=== PATIENT | female | born 1975 | race Hispanic/Latino ===

== ENCOUNTER 2019-07-27 | Emergency (ER) | payer SELFPAY ==
[~2019-07-27] MED LIST: AMOXIL500 MG OR; CALNA PO; IBUPROFEN600 MG PO; LORTAB 7.5-3251 TAB PO; NO; TORADOL OR
== END 2019-07-27 23:40 | disposition home or self-care (01) | DRG 300 ==
DX: I83.213 Varicose veins of right lower extremity with both ulcer of ankle and inflammation (principal); L97.319 Non-pressure chronic ulcer of right ankle with unspecified severity

== ENCOUNTER 2022-09-24 21:30 | Emergency (ER) | payer SELFPAY ==
[~2022-09-24] VITALS: Ht 154.9 cm; Wt 68.0 kg
[2022-09-24] VITALS (8 sets, daily range): BP systolic 105–126; BP diastolic 37–60
[2022-09-24 22:35] LABS: BASO% 0.2 % (0-3); EOS% 2.6 % (0-8); HEMATOCRIT 29.6 % (37.0-47.0); IMMATURE GRANULOCYTES 0.2 % (0.0-5.0); LYMPH% 22.9 % (15-41); MEAN CELL VOLUME 94.9 fL CALC (80.0-100.0); MEAN CORPUSCULAR HGB 28.8 pG CALC (26.0-32.0); MEAN CORPUSCULAR HGB CONC 30.4 g/dL CAL (32.0-36.0); MONO% 8.1 % (2-13); NEUT# 3.08 thou/uL (2.00-7.15); RED BLOOD COUNT 3.12 mill/uL (4.20-5.60); RED CELL DISTRI WIDTH 17.1 % (11.5-15.5)
[2022-09-24 22:41] LABS: URINE BILIRUBIN - DIPSTICK NEGATIVE (NEGATIVE); URINE BLOOD DIPSTICK LARGE (NEGATIVE); URINE GLUCOSE - DIPSTICK 250 mg/dL (NEGATIVE); URINE KETONE 15 mg/dL (NEGATIVE); URINE PROTEIN - DIPSTICK >=300 mg/dL (NEG-TRACE); URINE SPECIFIC GRAVITY <=1.005
[2022-09-24 22:42] LABS: URINE COLOR RED; URINE LEUK ESTERASE MODERATE (NEGATIVE); URINE NITRITE - DIPSTICK POSITIVE (Negative)
[2022-09-24 22:45] LABS: URINE RBC >100 RBC/hpf (0-5); URINE SQUAMOUS EPITHELIAL CELL RARE EPI/hpf (0-FEW)
[2022-09-24 22:47] LABS: ALKALINE PHOSPHATASE 180 u/l (38-126); ANION GAP 13 (6-22 (CALC)); BILIRUBIN, TOTAL 1.5 mg/dL (0.02-1.3); BUN 5 mg/dL (7-17); BUN/CREATININE RATIO 10 (12-20 (CALC)); CARBON DIOXIDE 23 mmol/l (22-30); CHLORIDE 109 mmol/l (95-108); CREATININE 0.5 mg/dL (0.5-1.0); GFR FOR AFR.AMER. > 60 ML/MIN (>=60 (CALC)); GFR OTHER RACES > 60 ML/MIN (>=60 (CALC)); POTASSIUM 3.6 mmol/l (3.5-5.1); SGOT/AST 108 u/l (14-36); SODIUM 141 mmol/l (137-146); TOTAL PROTEIN 8.5 g/dL (6.3-8.2)
[2022-09-24] MEDS ORDERED: KEFLEX500 MG PO (23:11)
== END 2022-09-25 00:30 | disposition home or self-care (01) | DRG 690 ==
LOC: ED 21:30
PROVIDERS: Emergency Medicine
DX: N39.0 Urinary tract infection, site not specified (principal); N93.8 Other specified abnormal uterine and vaginal bleeding

== ENCOUNTER 2022-12-11 08:56 | Inpatient (IN) | payer SELFPAY ==
[2022-12-11] VITALS (13 sets, daily range): BP systolic 78–117; BP diastolic 20–65
[~2022-12-11] VITALS: Ht 154.9 cm; Wt 79.8 kg
[~2022-12-11 08:56] MED LIST changes: +KEFLEX500 MG PO
[2022-12-11 10:34] LABS: URINE BLOOD DIPSTICK Large (NEGATIVE); URINE CLARITY Slightly Cloudy; URINE GLUCOSE - DIPSTICK 100 mg/dL (NEGATIVE); URINE KETONE Trace mg/dL (NEGATIVE); URINE LEUK ESTERASE Large (Negative); URINE NITRITE - DIPSTICK Negative (Negative); URINE PH 5.5 (4.5-8.0); URINE PROTEIN - DIPSTICK >=300 mg/dL (NEG-TRACE)
[2022-12-11 10:36] LABS: URINE COLOR Dark yellow
[2022-12-11 10:38] LABS: URINE BACTERIA MANY hpf; URINE SQUAMOUS EPITHELIAL CELL MANY EPI/hpf (0-FEW); URINE WBC 20-50 WBC/hpf (0-5)
[2022-12-11 10:56] LABS: EOS% 0.3 % (0-8); HEMATOCRIT 29.4 % (37.0-47.0); IMMATURE GRANULOCYTES 4.5 % (0.0-5.0); LYMPH% 4.8 % (15-41); MEAN CELL VOLUME 97.4 fL CALC (80.0-100.0); MEAN CORPUSCULAR HGB 29.8 pG CALC (26.0-32.0); MEAN CORPUSCULAR HGB CONC 30.6 g/dL CAL (32.0-36.0); MONO% 11.9 % (2-13); NEUT# 8.1 thou/uL (2.00-7.15); NEUT% 78.5 % (42-76); RED BLOOD COUNT 3.02 mill/uL (4.20-5.60)
[2022-12-11 11:12] LABS: TOTAL PROTEIN 6.8 g/dL (6.3-8.2)
[2022-12-11 11:34] LABS: ALBUMIN 2.7 g/dL (3.2-5.0); BILIRUBIN, TOTAL 14.3 mg/dL (0.02-1.3); DIRECT BILIRUBIN 8.4 mg/dl (0.0-0.3)
[2022-12-11 11:46] LABS: POTASSIUM 2.9 mmol/l (3.5-5.1); TOTAL PROTEIN 7.3 g/dL (6.3-8.2)
[2022-12-11 11:50] LABS: ALBUMIN 2.8 g/dL (3.2-5.0); BILIRUBIN, TOTAL 14.7 mg/dL (0.02-1.3); CREATININE 2.4 mg/dL (0.5-1.0)
[2022-12-12] VITALS (8 sets, daily range): BP systolic 91–109; BP diastolic 21–45
[2022-12-12 02:10] LABS: HEMATOCRIT 25.4 % (37.0-47.0); HEMOGLOBIN 7.9 g/dl (12.0-16.0); MEAN CELL VOLUME 98.4 fL CALC (80.0-100.0); MEAN CORPUSCULAR HGB 30.6 pG CALC (26.0-32.0); MEAN CORPUSCULAR HGB CONC 31.1 g/dL CAL (32.0-36.0); RED BLOOD COUNT 2.58 mill/uL (4.20-5.60); RED CELL DISTRI WIDTH 18.4 % (11.5-15.5)
[2022-12-12 02:27] LABS: CHOLESTEROL HDL RATIO 6.1 (<4.4 (CALC)); CREATININE 2.4 mg/dL (0.5-1.0); MAGNESIUM 1.9 mg/dL (1.6-2.3); POTASSIUM 3.2 mmol/l (3.5-5.1)
[2022-12-12 08:52] LABS: ALBUMIN 2.3 g/dL (3.2-5.0); BILIRUBIN, TOTAL 15.3 mg/dL (0.02-1.3); CREATININE 2.4 mg/dL (0.5-1.0); POTASSIUM 3.4 mmol/l (3.5-5.1); TOTAL PROTEIN 6.2 g/dL (6.3-8.2)
[2022-12-12 16:58] LABS: EOS% 1.5 % (0-8); HEMATOCRIT 24.8 % (37.0-47.0); HEMOGLOBIN 7.6 g/dl (12.0-16.0); IMMATURE GRANULOCYTES 2.5 % (0.0-5.0); LYMPH% 7.5 % (15-41); MEAN CELL VOLUME 98.8 fL CALC (80.0-100.0); MEAN CORPUSCULAR HGB 30.3 pG CALC (26.0-32.0); MEAN CORPUSCULAR HGB CONC 30.6 g/dL CAL (32.0-36.0); MONO% 11.8 % (2-13); NEUT# 7.55 thou/uL (2.00-7.15); NEUT% 76.7 % (42-76); RED BLOOD COUNT 2.51 mill/uL (4.20-5.60); RED CELL DISTRI WIDTH 18.5 % (11.5-15.5)
[2022-12-13] VITALS (14 sets, daily range): BP systolic 99–114; BP diastolic 30–51
[2022-12-13 05:55] LABS: EOS% 1.1 % (0-8); HEMATOCRIT 26.2 % (37.0-47.0); HEMOGLOBIN 8.2 g/dl (12.0-16.0); MEAN CORPUSCULAR HGB 30.4 pG CALC (26.0-32.0); MEAN CORPUSCULAR HGB CONC 31.3 g/dL CAL (32.0-36.0); MONO% 11.4 % (2-13); NEUT# 8.7 thou/uL (2.00-7.15); NEUT% 75.5 % (42-76); RED BLOOD COUNT 2.7 mill/uL (4.20-5.60); RED CELL DISTRI WIDTH 18.3 % (11.5-15.5)
[2022-12-13 06:08] LABS: ALBUMIN 2.6 g/dL (3.2-5.0); BILIRUBIN, TOTAL 16.2 mg/dL (0.02-1.3); CREATININE 2.4 mg/dL (0.5-1.0); TOTAL PROTEIN 6.6 g/dL (6.3-8.2)
[2022-12-13 06:11] LABS: MAGNESIUM 2.4 mg/dL (1.6-2.3)
[2022-12-13 06:19] LABS: C-REACTIVE PROTEIN 21.8 mg/dL (0-0.9)
[2022-12-13 12:33] LABS: INTERNATIONAL NORMALIZED RATIO 1.8 RATIO (0.7-1.3); PROTHROMBIN TIME 17.1 SECONDS (9.0-12.5)
== END 2022-12-13 21:45 | disposition short-term general hospital (02) | DRG 871 ==
LOC: ED 08:56 → ED-I 12:10 → ED 12:19 → MS2 12:20
PROVIDERS: Family Medicine; Nurse Practitioner Family; ADMIT Student in an Organized Health Care Education/Training Program; ATTEND Student in an Organized Health Care Education/Training Program
PROC: 30233R1 Transfusion of Nonautologous Platelets into Peripheral Vein, Percutaneous Approach (ICD-10-PCS; principal; 2022-12-12)
PROC: 30233R1 Transfusion of Nonautologous Platelets into Peripheral Vein, Percutaneous Approach (ICD-10-PCS; 2022-12-13)
DX: A41.51 Sepsis due to Escherichia coli [E. coli] (principal); K72.00 Acute and subacute hepatic failure without coma; N17.0 Acute kidney failure with tubular necrosis; N39.0 Urinary tract infection, site not specified; E87.1 Hypo-osmolality and hyponatremia; E87.20 Acidosis, unspecified; R65.20 Severe sepsis without septic shock; I95.9 Hypotension, unspecified; E86.9 Volume depletion, unspecified; I50.9 Heart failure, unspecified; D69.6 Thrombocytopenia, unspecified; R16.2 Hepatomegaly with splenomegaly, not elsewhere classified; F10.20 Alcohol dependence, uncomplicated; D64.9 Anemia, unspecified; E80.6 Other disorders of bilirubin metabolism; K76.0 Fatty (change of) liver, not elsewhere classified; E87.6 Hypokalemia; N93.8 Other specified abnormal uterine and vaginal bleeding; Z90.49 Acquired absence of other specified parts of digestive tract; Z20.822 Contact with and (suspected) exposure to COVID-19
CPT/HCPCS: J1756; P9034; P9037

== ENCOUNTER 2022-12-19 22:17 | Inpatient (IN) | payer SELFPAY ==
[~2022-12-19] VITALS: Ht 154.9 cm; Wt 96.6 kg
[2022-12-19 22:49] VITALS: BP 103/28
[2022-12-20 04:32] VITALS: BP 89/38
[2022-12-20 04:34] VITALS: BP 110/45
[2022-12-20 04:45] LABS: BASO% 0.4 % (0-3); EOS% 1.3 % (0-8); HEMATOCRIT 24.3 % (37.0-47.0); HEMOGLOBIN 7.6 g/dl (12.0-16.0); IMMATURE GRANULOCYTES 0.9 % (0.0-5.0); LYMPH% 16.7 % (15-41); MEAN CELL VOLUME 102.5 fL CALC (80.0-100.0); MEAN CORPUSCULAR HGB 32.1 pG CALC (26.0-32.0); MEAN CORPUSCULAR HGB CONC 31.3 g/dL CAL (32.0-36.0); MONO% 5.7 % (2-13); NEUT# 5.62 thou/uL (2.00-7.15); RED BLOOD COUNT 2.37 mill/uL (4.20-5.60); RED CELL DISTRI WIDTH 19.9 % (11.5-15.5)
[2022-12-20 04:50] LABS: ALBUMIN 2.3 g/dL (3.2-5.0); ALKALINE PHOSPHATASE 171 u/l (38-126); CARBON DIOXIDE 17 mmol/l (22-30); CHLORIDE 111 mmol/l (95-108); SGOT/AST 79 u/l (14-36); SODIUM 135 mmol/l (137-146); TOTAL PROTEIN 6.9 g/dL (6.3-8.2)
[2022-12-20 04:52] LABS: ANION GAP 11 (6-22 (CALC)); BILIRUBIN, TOTAL 5.8 mg/dL (0.02-1.3); BUN 13 mg/dL (7-17); BUN/CREATININE RATIO 19 (12-20 (CALC)); CREATININE 0.7 mg/dL (0.5-1.0); GFR FOR AFR.AMER. > 60 ML/MIN (>=60 (CALC)); GFR OTHER RACES > 60 ML/MIN (>=60 (CALC)); POTASSIUM 4.1 mmol/l (3.5-5.1)
[2022-12-20 07:11] VITALS: BP 110/40
[2022-12-20 17:15] VITALS: BP 118/47
[2022-12-20 19:24] VITALS: BP 110/45
[2022-12-21] VITALS (8 sets, daily range): BP systolic 106–114; BP diastolic 40–75
[2022-12-21 05:24] LABS: BASO% 0.7 % (0-3); HEMATOCRIT 22.6 % (37.0-47.0); IMMATURE GRANULOCYTES 0.2 % (0.0-5.0); LYMPH% 17.2 % (15-41); MEAN CELL VOLUME 104.1 fL CALC (80.0-100.0); MEAN CORPUSCULAR HGB 32.3 pG CALC (26.0-32.0); MONO% 6.6 % (2-13); NEUT# 4.44 thou/uL (2.00-7.15); NEUT% 73.3 % (42-76); RED BLOOD COUNT 2.17 mill/uL (4.20-5.60); RED CELL DISTRI WIDTH 19.9 % (11.5-15.5)
[2022-12-21 05:38] LABS: ALBUMIN 2.3 g/dL (3.2-5.0); ALKALINE PHOSPHATASE 159 u/l (38-126); ANION GAP 10 (6-22 (CALC)); BILIRUBIN, TOTAL 4.9 mg/dL (0.02-1.3); BUN 11 mg/dL (7-17); BUN/CREATININE RATIO 16 (12-20 (CALC)); CARBON DIOXIDE 16 mmol/l (22-30); CHLORIDE 112 mmol/l (95-108); CREATININE 0.7 mg/dL (0.5-1.0); GFR FOR AFR.AMER. > 60 ML/MIN (>=60 (CALC)); GFR OTHER RACES > 60 ML/MIN (>=60 (CALC)); POTASSIUM 3.6 mmol/l (3.5-5.1); SGOT/AST 89 u/l (14-36); SODIUM 135 mmol/l (137-146); TOTAL PROTEIN 6.7 g/dL (6.3-8.2)
[2022-12-21 05:41] LABS: DIRECT BILIRUBIN 0.1 mg/dl (0.0-0.3); MAGNESIUM 1.6 mg/dL (1.6-2.3)
[2022-12-21] MEDS ORDERED: LEVAQUIN750 M1 PO (13:41)
== END 2022-12-21 14:30 | disposition home or self-care (01) | DRG 872 ==
LOC: MS2 22:17
PROVIDERS: Internal Medicine; ADMIT Student in an Organized Health Care Education/Training Program; ATTEND Student in an Organized Health Care Education/Training Program
PROC: 30233N1 Transfusion of Nonautologous Red Blood Cells into Peripheral Vein, Percutaneous Approach (ICD-10-PCS; principal; 2022-12-21)
DX: A41.51 Sepsis due to Escherichia coli [E. coli] (principal); N17.9 Acute kidney failure, unspecified; N39.0 Urinary tract infection, site not specified; Z68.41 Body mass index [BMI] 40.0-44.9, adult; R65.20 Severe sepsis without septic shock; E80.6 Other disorders of bilirubin metabolism; D64.9 Anemia, unspecified; E66.01 Morbid (severe) obesity due to excess calories; R79.89 Other specified abnormal findings of blood chemistry; N93.8 Other specified abnormal uterine and vaginal bleeding
CPT/HCPCS: J0692; J1650; P9016